=== PATIENT | male | born 1990 | race Caucasian/White ===

== ENCOUNTER 2018-06-28 20:23 | Emergency (ER) | payer SELFPAY ==
[~2018-06-28] VITALS: Ht 182.9 cm; Wt 118.2 kg
[2018-06-28 21:14] VITALS: BP 140/80
== END 2018-06-28 21:46 | disposition home or self-care (01) ==
LOC: EMS 20:25
DX: Z02.89 Encounter for other administrative examinations (principal)
CPT/HCPCS: 93005